=== PATIENT | female | born 1950 | race Caucasian/White ===

== ENCOUNTER 2017-06-28 08:21 | Outpatient (CLI) | payer MEDICARE ==
--- NOTE | 2017-06-28 10:04 | RAD ---
THREE VIEWS LUMBAR SPINE: HISTORY: Radiculopathy. Pain. COMPARISON: None. FINDINGS: There are 5 lumbar-type vertebral bodies. Vertebral body height is maintained. No fracture. There is grade I retrolisthesis throughout the lumbar spine at L1-L2, L2-L3, and L3-L4. There is moderate to severe loss of disk space height at L2-L3 and L3-L4. Upon flexion, the degree of retrolisthesis d oes not change. Upon extension, the degree of retrolisthesis has not changed. IMPRESSION: Persistent retrolisthesis as above. POS: LOBITO
--- NOTE | 2017-06-28 10:39 | MRI ---
MRI LUMBAR SPINE WITHOUT IV CONTRAST: Date: 06/28/17 HISTORY: Lumbar radiculopathy. Patient states low back pain with pain radiating down base of neck to bilateral shoulders, as well as down into both hips and legs since August 2016. FINDINGS: A 1.3 cm increased T2-weighted signal intensity lesion seen in the mid portion of right kidney, which likely represents cyst but is difficult to characterize on this exam. Nonemergent renal sonogram wou ld be helpful for further evaluation. Retroperitoneal structures otherwise demonstrate a normal MRI a ppearance. End plate degenerative changes are seen at the L3-4 level. Schmorl's node seen at the inferior end pl ate of the L2 vertebral body. Normal signal intensity otherwise demonstrated in the bone marrow. T11-12 Level: There is a focus of increased T2-weighted signal intensity seen in the paracentral posterior margin o f the intervertebral disc consistent with a small annular tear. There is minimal associated disc bulg e with slight effacement of the ventral subarachnoid space. Neural foramina are patent. T12-L1 Level: There is no disc bulge or disc herniation. There are mild facet degenerative changes. There is no sig nificant narrowing of the central spinal canal and the neural foramina are widely patent. L1-2 Level: There is loss of intervertebral disc height. There is trace retrolisthesis of L1 and L2. There is a b road based disc osteophyte complex, but there is no significant narrowing of the central spinal canal , and the neural foramina are patent. L2-3 Level: There is trace retrolisthesis of L2 on L3. There is severe loss of intervertebral disc space height. There is a broad based disc osteophyte complex. This flattens the ventral aspect of the thecal sac wi thout significant narrowing of the central spinal canal. There is mild encroachment on each neural fo ramen. L3-4 Level: There is trace retrolisthesis of L3 on L4. There is severe loss of intervertebral disc height. There is a broad based disc osteophyte complex present. This again results in slight flattening of the vent ral aspect of the thecal sac without significant narrowing of the central spinal canal. There is mild to moderate left-sided neural foraminal narrowing with mild right-sided neural foraminal narrowing. L4-5 Level: There is minimal disc bulge without significant narrowing of the central spinal canal. Facet hypertro phic changes are present at this level. There is mild to moderate right and mild left-sided neural fo raminal narrowing. L5-S1 Level: There is a minimal broad based disc bulge, but central spinal canal is patent. There are prominent fa cet and hypertrophic changes bilaterally with mild bilateral neural foraminal narrowing. The conus medullaris is normal in appearance and terminates at the L1-2 level. IMPRESSION: 1. Multilevel degenerative changes with mild degrees of neural foraminal narrowing. 2. Trace retrolisthesis of L1 on L2, L2 on L3, and L3 on L4. 3. Annular tear involving the T11-12 intervertebral disc. 4. Cystic lesion right kidney, statistically likely representing a small renal cyst. However, renal sonogram would be helpful for further evaluation. POS: DEB
== END 2017-06-28 08:22 | disposition home or self-care (01) ==
LOC: TBSIIMAG 08:21
PROVIDERS: ATTEND Surgery
DX: M47.26 Other spondylosis with radiculopathy, lumbar region (principal); M99.83 Other biomechanical lesions of lumbar region; M51.16 Intervertebral disc disorders with radiculopathy, lumbar region; N28.89 Other specified disorders of kidney and ureter; M43.16 Spondylolisthesis, lumbar region
CPT/HCPCS: 72110; 72148

== ENCOUNTER 2018-09-22 15:06 | Outpatient (CLI) | payer MEDICARE ==
--- NOTE | 2018-09-22 16:37 | ULT ---
LEFT LOWER EXTREMITY VENOUS DUPLEX ULTRASOUND INCLUDING COLOR AND SPECTRAL DOPPLER IMAGING: HISTORY: Lower leg edema and swelling. TECHNIQUE: Exam performed from groin to ankle, including the visualized greater saphenous, the common femoral, t he superficial femoral, the profunda femoral, the popliteal, and trifurcation, and the posterior tibi al vein regions. There is phasic flow at all levels with normal compressibility and normal augmentat ion. No intraluminal thrombus. FINDINGS: In the medial mid calf region, there is a small fluid collection, measuring approximately 0.9 x 2.3 x 9.9 cm, etiology is uncertain, conceivably this could represent a small hematoma or seroma. Another consideration would be that of fluid, in association with a ruptured Duron's cyst or popliteal fossa cyst. From ultrasound findings alone, the possibility of this representing a small infected fluid c ollection cannot be totally excluded. Please correlate clinically. If additional imaging is felt to be needed clinically, a follow-up MRI with and without contrast might be of benefit. IMPRESSION: 1. No evidence for deep venous thrombosis. 2. Elongated fluid collection in the soft tissues of the medial mid calf. POS: RRE
== END 2018-09-22 15:07 | disposition home or self-care (01) ==
LOC: SCSULT 15:06
PROVIDERS: ATTEND Family Medicine
DX: M79.605 Pain in left leg (principal); M79.89 Other specified soft tissue disorders

== ENCOUNTER 2019-04-24 12:59 | Outpatient (CLI) | payer MEDICARE ==
--- NOTE | 2019-04-24 14:51 | MRI ---
MRI RIGHT KNEE WITHOUT CONTRAST: Date: 04/24/2019 HISTORY: S83.421A sprain of lateral collateral ligament. COMPARISON: None. FINDINGS: Medial Meniscus: Low grade undersurface flap tear of the posterior horn/body junction and sprain of root attachment. There is mild intrameniscal degenerative signal in the medial meniscus body. No sign ificant gutter extrusion. Lateral Meniscus: There is a bucket-handle tear of the lateral meniscus involving the lateral menisc al body and posterior horn flipped anterior to the posterior horn with no normal anterior horn fibers remaining. The torn displaced fibers are likely scarred and highly degenerative. There is some scarring and granulation tissue trying to bridge the gap between the lateral femoral co ndyle and lateral tibial plateau. Moderate anterior ligament degeneration of anterior cruciate ligament. Posterior cruciate ligament is intact. MCL is intact. LCL is intact. Extensor Mechanism: Quadriceps tendon, patella, and patellar tendon are intact. Bones: There are numerous full thickness cartilage fissures throughout the patellofemoral compartmen t with subcortical reactive marrow change. Medial Compartment: Some moderate chondral delamination of central weightbearing surface medial femo ral condyle and medial tibial plateau with reactive marrow change and articular surface remodeling. T hese fissures and fraying are within the background and with relatively normal appearing cartilage in volving a major of the medial compartment. Lateral compartment: Cartilage denuding central articular surfaces of the lateral femoral condyle an d lateral tibial plateau with subsequent concavity of the lateral tibial plateau and genu valgus. Bones: Vert large tricompartmental osteophytes. Subcortical cysts/edema lateral tibial plateau with concavity. Small medial and patellofemoral compartment osteophytes. Soft Tissues: Moderate joint effusion with synovitis. Large popliteal cyst without evidence of dehis cence. Muscles: Muscle signal and bulk are normal. IMPRESSION: 1. Chronic complete bucket-handle tear of the lateral meniscal body and anterior horn displaced ante rior to the posterior horn, likely a scar in place as there is high grade degenerative signal of the flipped meniscal fibers, chondral maceration, and chronic remodeling of the lateral compartment with subsequent genu valgus. 2. Mild intraligamentous degeneration of the anterior cruciate ligament, likely sequelae of erosion from the large femoral condylar osteophytes. 3. 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 4. A few high grade chondral fissures and delamination of the medial femoral condyle with otherwise background Grade II chondromalacia. 5. Nondisplaced undersurface flap tear of the posterior horn and body junction of medial meniscus ex tending to the posterior horn sparing the root attachment. No gutter extrusion. 6. Moderate joint effusion with synovitis. 7. Large popliteal cyst without dehiscence. POS: CET
--- NOTE | 2019-05-04 13:42 | MMO ---
Bilateral MAMMO Bilat Screen [facility]. CLINICAL HISTORY: Patient is 68 years old and is seen for screening. The patient has no family history of breast cancer. The patient has no personal history of cancer. VIEWS: The views performed were: bilateral craniocaudal with tomosynthesis and bilateral mediolateral oblique with tomosynthesis. FILMS COMPARED: The present examination has been compared to prior imaging studies performed at [facility] on 11/23/2014 and 02/13/2016. This study has been interpreted with the assistance of computer-aided detection. MAMMOGRAM FINDINGS: There are scattered fibroglandular densities. Benign calcifications are noted bilaterally. There are no suspicious masses, suspicious calcifications, or new areas of architectural distortion. IMPRESSION: THERE IS NO MAMMOGRAPHIC EVIDENCE OF MALIGNANCY. A ROUTINE FOLLOW-UP MAMMOGRAM IN 1 YEAR IS RECOMMENDED. THE RESULTS OF THIS EXAM WERE SENT TO THE PATIENT. ACR BI-RADS Category 2 - Benign finding MAMMOGRAPHY NOTE: 1. A negative mammogram report should not delay a biopsy if a dominant of clinically suspicious mass is present. 2. Approximately 10% to 15% of breast cancers are not detected by mammography. 3. Adenosis and dense breasts may obscure an underlying neoplasm. Reported by: YESENIA STEWART MD Electonically Signed: [id number]
== END 2019-04-24 13:00 | disposition home or self-care (01) ==
LOC: BICMRI 12:59
PROVIDERS: ATTEND Specialist
DX: Z12.31 Encounter for screening mammogram for malignant neoplasm of breast (principal); S83.421A Sprain of lateral collateral ligament of right knee, initial encounter; S83.251A Bucket-handle tear of lateral meniscus, current injury, right knee, initial encounter; M94.261 Chondromalacia, right knee; S83.241A Other tear of medial meniscus, current injury, right knee, initial encounter; M65.9 Synovitis and tenosynovitis, unspecified; M71.21 Synovial cyst of popliteal space [Baker], right knee
CPT/HCPCS: 77063; 77067

== ENCOUNTER 2019-08-14 07:10 | Outpatient (CLI) | payer MEDICARE, OTHER ==
[2019-08-14 16:45] LABS: #Basophils 0.1 thou/uL (0.0-0.2); #Eosinphils 0.1 thou/uL (0.0-0.7); #Monocytes 0.5 thou/uL (0.11-0.59); #Neutrophils 4.7 thou/uL (1.40-6.50); %Basophils 0.7 % (0.0-1.0); %Eosinophils 1.6 % (0.0-10.0); %Lymphocytes 27.2 % (21.0-51.0); %Monocytes 7.2 % (0.0-10.0); %Neutrophils 63.2 % (42.0-75.0); Hemoglobin 15.1 g/dL (12.0-16.0); Mean Corpuscular Hemoglobin 27.3 pg (27.0-31.0); Mean Corpuscular Volume 82.8 fL (78.0-98.0); Mean Platelet Volume 8.6 fL (7.4-10.4); Platelet Count 311 thou/uL (130-400); RBC Distribution Width 13.7 % (11.5-14.5); Red Blood Cell (RBC) Count 5.52 mill/uL (4.20-5.40); White Blood Cell (WBC) Count 7.5 thou/uL (4.8-10.8)
[2019-08-14 16:50] LABS: Anion Gap 10 mmol/L (10-20); BUN (Urea Nitrogen) 12 mg/dL (9.8-20.1); Calc. Creatinine Clearance 0 mL/min (70-130); Calcium 9.3 mg/dL (7.8-10.44); Carbon Dioxide 28 mmol/L (23-31); Chloride 109 mmol/L (98-107); Estimated GFR-MDRD 67; Glucose 73 mg/dL (80-115); Potassium 3.9 mmol/L (3.5-5.1); Sodium 143 mmol/L (136-145)
[2019-08-15 12:16] LABS: SARS-CoV-2 MS2 Positive; SARS-CoV-2 N Gene Negative; SARS-CoV-2 S Gene Negative; SARS-CoV-2 orf1ab Negative
== END 2019-08-14 07:11 | disposition home or self-care (01) ==
LOC: LABBT 07:10
PROVIDERS: ATTEND Orthopaedic Surgery
DX: Z01.818 Encounter for other preprocedural examination (principal); Z11.59 Encounter for screening for other viral diseases; M17.11 Unilateral primary osteoarthritis, right knee
CPT/HCPCS: 80048; 85025; 85610; 87081; U0003; 87635; 93005; 93010

== ENCOUNTER 2019-08-18 05:29 | Observation (INO) | payer MEDICARE ==
[2019-08-13 09:54] VITALS: BMI 29.3
[2019-08-18] MEDS ORDERED: Vancomycin 1 GM/200 ML BAG ONE (06:00)
[2019-08-18] MEDS ORDERED: Tranexamic Acid 1,000 MG/10 ML VIAL ONE (06:00)
[2019-08-18] MEDS ORDERED: Sodium Chloride 0.9% 100 ML ONE (06:00)
[2019-08-18] MEDS ORDERED: Fentanyl 100 MCG/2 ML VIAL ONE ×5 (06:13→09:35)
[2019-08-18] MEDS ORDERED: Midazolam HCl 2 mg/2 ml Vial ONE ×2 (06:13→06:25)
[2019-08-18] MEDS ORDERED: diphenhydrAMINE 25 MG CAP PO PRN (07:00)
[2019-08-18] MEDS ORDERED: HYDROcodone/Acetaminophen 10/325 mg Tablet PO PRN ×4 (07:00→07:24)
[2019-08-18] MEDS ORDERED: Zolpidem Tartrate 5 MG TAB PO PRN ×2 (07:00→07:24)
[2019-08-18] MEDS ORDERED: Promethazine HCl 25 MG/ML VIAL IM PRN ×2 (07:00→07:24)
[2019-08-18] MEDS ORDERED: Acetaminophen 325 MG TAB PO PRN (07:00)
[2019-08-18] MEDS ORDERED: Fentanyl 100 MCG/2 ML VIAL SLOW IVP PRN ×3 (07:00→07:25)
[2019-08-18] MEDS ORDERED: Ondansetron PF 4 MG/2 ML Vial IVP PRN ×2 (07:00→07:24)
[2019-08-18] MEDS ORDERED: tiZANidine HCl 4 MG TAB PO PRN (07:03)
[2019-08-18] MEDS ORDERED: traMADol HCl 50 MG TAB PO PRN ×2 (07:24)
[2019-08-18] MEDS ORDERED: Ropivacaine HCl/PF 250 ML in Premix Bag 1 BAG NERVE BLCK SCH (07:24)
[2019-08-18] MEDS ORDERED: Promethazine HCl 25 MG/ML VIAL ONE (09:05)
--- NOTE | 2019-08-18 09:19 | OP ---
DATE OF PROCEDURE: 08/18/2019 This is Kiet Plasencia PA-C dictating a report for Ron Lambert MD. PREOPERATIVE DIAGNOSIS: End-stage tricompartmental osteoarthritis, right knee, with degenerative genu valgum. POSTOPERATIVE DIAGNOSIS: End-stage tricompartmental osteoarthritis, right knee, with degenerative genu valgum. PROCEDURE PERFORMED: Cemented cruciate-sparing computer-assisted navigated right total knee arthroplasty. VINER OPERATOR: Kiet Plasencia PA-C ANESTHESIA: General via LMA, augmented with indwelling adductor canal and a single-shot sciatic block. COMPONENTS USED: [employer] Triathlon primary cemented cruciate-sparing size 3 femoral component, primary cemented size 3 tibial base plate, 9-mm polyethylene fixed bearing insert, and an S27 patellar button. TOURNIQUET TIME: 54 minutes at 300 mmHg. FINDINGS: End-stage severe degenerative tricompartmental disease, [id number] arthrosis, periarticular osteophyte formation, large serous effusion, hypertrophic synovium, and changes consistent with degenerative genu valgum and a significant wear pattern of the lateral compartment. DRAINS: None. SPECIMENS: None. COMPLICATIONS: None. ESTIMATED BLOOD LOSS: Less than 100. INDICATIONS FOR SURGERY: Anita is a 68-year-old female who has had progressive right knee pain and problems with standing and walking for the last 5 to 7 years. She has failed conservative management, elected to proceed with total knee arthroplasty as definitive treatment of her pain. PROCEDURE IN DETAIL: After informed consent was obtained in the preoperative holding area, the patient was taken to the operative suite where general anesthesia was induced. Once adequate level of general anesthesia was obtained, the patient was positioned and a well-padded tourniquet was placed around the right proximal thigh. The right lower extremity was then prepped and draped in the usual sterile fashion. Prior to exsanguination, a time-out was called and all members of the surgical team agreed upon site, surgeon, and patient. The extremity was then exsanguinated and the tourniquet was raised. A midline longitudinal incision was then made directly over the patella extending 2 fingerbreadths above the superior pole of the patella and 2 fingerbreadths inferior to the inferior patellar pole of the patella. Deeper subcutaneous layers were dissected sharply and local bleeding was controlled with Bovie electrocautery. A quad tendon longitudinal split was then made sharply and a median parapatellar arthrotomy was carried out both sharp and with Bovie electrocautery, carried down to 1 fingerbreadth medial to the tibial tubercle. The knee was then placed into flexion and the patella was everted nicely, and a copious fat pad ectomy was performed, allowing for greater exposure of the tibia. The computer-assisted distal femoral fiducial was then placed and pinned firmly, and the distal femoral cutting guide was pinned firmly into place. The oscillating saw was then used to remove the appropriate amount of bone. The 4-in-1 cutting block was then placed on the distal femur and the oscillating saw was used to remove the appropriate amount of bone off the anterior, posterior, and chamfer cuts. After completion of bone cuts, the anterior cruciate ligament was resected sharply and the posterior cruciate ligament retractor was placed and the tibia was subluxed for better exposure. Partial meniscectomies were carried out, and the tibial computer-assisted fiducial was pinned, and the cutting guide was placed. Oscillating saw was then used to remove the bone, with Hohmann retractors used to take care and protect the collateral ligaments. After the tibial resection was performed, a laminar paper hanger was placed in between the freshened bone cuts. The knee placed at 90 degrees and further bilateral meniscectomies were carried out, and the curved osteotome and curettage were used to remove any excess bone spurs in the posterior compartment. The trial femoral component, tibial baseplate were placed with the appropriate polyethylene trial insert with an appropriate polyethylene spacer and patellar button. The knee was taken through full range of motion with flexion and extension from 0 to 90 degrees and patellar broach squarely in the trochlea without any squinting or subluxation noted. The knee was also stable to varus and valgus stressing at 0, 15, 45, and 90 degrees of flexion. The drawer was negative. All trial components were then removed and the keel punch was used to provide the appropriate defect in the tibia with a mallet. The freshened bone cuts were copiously irrigated with pulsatile lavage of about 1.5 L to remove all excess debris. The freshened bone cuts were then dried with suction and lap sponge. The knee was placed in flexion and retractors were placed to provide access to all bone cuts. Tobramycin-impregnated methyl methacrylate cement was then placed on the freshened bone cuts and implants which were malleted firmly into place. Curettage and Bartlett elevators were used to remove any excess bone cement. The knee was placed into full extension and the patellar button was placed under compression, and the cement was allowed to cure. Once completed, the components were again taken through full range of motion and copious irrigation of the knee was carried out with another liter of normal saline. All components were inspected fully with full range of motion and varus and valgus stressing. There was no laxity noted and full extension was observed clinically. Primary closure was accomplished with #2 interrupted Vicryl stitch of the arthrotomy defect. This was oversewn with a #2 running Quill barbed stitch. The subcutaneous layer was then closed with a running 0 barbed Monocryl stitch and skin closure accomplished with a running subcuticular 3-0 Monocryl barbed Quill stitch and augmented with cement on the skin. Tourniquet was lowered. Good spontaneous return of distal pulses was noted clinically and a sterile dressing was applied to the incision. The procedure was terminated without any complications. The patient was awakened in the operative suite and taken to the recovery room in stable condition. Job ID: [id number]
--- NOTE | 2019-08-18 09:50 | RAD ---
EXAM: 2 views of the right knee HISTORY: Knee arthroplasty COMPARISON: None FINDINGS: No knee effusion is seen. The patient is status post knee arthroplasty without perihardware lucency or fracture. Air in the soft tissues is from recent surgery. IMPRESSION: Status post knee arthroplasty without evidence of complication.
[2019-08-18] MEDS ORDERED: Ketorolac Tromethamine 30 MG/ML VIAL ONE (10:02)
[2019-08-18] MEDS ORDERED: Bupivacaine HCl 0.5%/Epinephrine 1:200,000/PF 30 ml Vial ONE (10:49)
[2019-08-18] MEDS ORDERED: Ropivacaine 0.2% HCl/PF (40 MG/20 ML VIAL) ONE (10:49)
[2019-08-18] MEDS ORDERED: Dexamethasone 20 MG/5 ML VIAL ONE (10:49)
[2019-08-18] MEDS ORDERED: Ondansetron PF 4 MG/2 ML Vial ONE (10:49)
[2019-08-18] MEDS ORDERED: Lidocaine 1% PF 5 ML VIAL ONE (10:49)
[2019-08-18] MEDS ORDERED: PROPOFOL 200 MG/20 ML VIAL ONE (10:49)
[2019-08-18] MEDS: ALPRAZolam 1 MG TAB PO SCH ×4 (11:28→21:12)
[2019-08-18] MEDS: Sodium Chloride 0.9% 1,000 ML IV SCH ×3 (11:28→22:28)
[2019-08-18] MEDS: Aspirin 81 mg Enteric Coated Tablet PO SCH ×2 (11:28→21:11)
[2019-08-18] MEDS ORDERED: Ketorolac Tromethamine 30 MG/ML VIAL IVP SCH ×2 (12:00→14:00)
[2019-08-18] MEDS: CEFAZOLIN 2 GM in Premix Bag 1 BAG IVPB SCH ×2 (14:25→21:12)
[2019-08-18] MEDS: Ketorolac Tromethamine 30 MG/ML VIAL IVP SCH ×2 (16:03→21:15)
[2019-08-19] MEDS: Ketorolac Tromethamine 30 MG/ML VIAL IVP SCH ×4 (05:24→21:02)
[2019-08-19 05:33] LABS: Hemoglobin 12.4 g/dL (12.0-16.0); Mean Corpuscular HGB CONC 32.1 g/dL (32.0-36.0); Mean Corpuscular Hemoglobin 26.8 pg (27.0-31.0); Mean Corpuscular Volume 83.6 fL (78.0-98.0); Platelet Count 251 thou/uL (130-400); RBC Distribution Width 13.5 % (11.5-14.5); Red Blood Cell (RBC) Count 4.62 mill/uL (4.20-5.40)
[2019-08-19] MEDS: Pantoprazole 40 MG GRANULES PACKET PO SCH (08:50)
[2019-08-19] MEDS: Aspirin 81 mg Enteric Coated Tablet PO SCH ×2 (08:50→20:32)
[2019-08-19] MEDS: Ferrous Gluconate 324 MG TAB PO SCH ×2 (08:50→17:49)
[2019-08-19] MEDS: Senokot S 8.6-50 MG TAB PO SCH ×2 (08:50→20:32)
[2019-08-19] MEDS: ALPRAZolam 1 MG TAB PO SCH ×3 (08:51→20:30)
[2019-08-19] MEDS: Multivitamin W/ Minerals 1 TAB PO SCH (08:51)
[2019-08-19] MEDS: Enoxaparin Sodium 40 MG/0.4 ML SYRINGE SC SCH (08:52)
[2019-08-19] MEDS: Sodium Chloride 0.9% 1,000 ML IV SCH (13:00)
[2019-08-19] MEDS ORDERED: Sodium Chloride 0.9% 500 ML IV SCH (14:45)
--- NOTE | 2019-08-19 15:11 | PDOC.HOSPP ---
- Subjective Encounter Date: 08/19/19 Subjective: 68 years old female with no significant past medical history apart from arthritis and anxiety. She is status post TKA POD1. She is participating in physical therapy and her pain is controlled. BP is on the lower side. - Objective Vital Signs & Weight: Vital Signs (12 hours) Temp Pulse Resp BP Pulse Ox 08/19/19 11:08 97.5 F L 91 18 80/53 L 96 08/19/19 07:21 98.0 F 74 18 95/62 100 08/19/19 05:34 98 F 16 101/66 93 L Weight Admit Weight 171 lb Weight 171 lb I&O: 08/18/19 08/19/19 08/20/19 06:59 06:59 06:59 Intake Total 874 Output Total 3000 Balance -2125 Result Diagrams: 08/19/19 05:06 Hospitalist ROS - Medication Medications: Active Medications Generic Name Dose Route Start Last Admin Trade Name Freq PRN Reason Stop Dose Admin Hydrocodone Bitart/Acetaminophen 1 tab 08/18/19 07:24 08/19/19 08:52 [place] 10/325 PO 1 tab Q4H PRN Administration Pain (1-3) Alprazolam 1 mg 08/18/19 15:00 08/19/19 08:51 Xanax PO 1 mg TID GAYLE Administration Aspirin 81 mg 08/18/19 09:00 08/19/19 08:50 Ecotrin PO 81 mg BID GAYLE Administration Enoxaparin Sodium 40 mg 08/19/19 09:00 08/19/19 08:52 Lovenox SC 40 mg 0900 GAYLE Administration Ferrous Gluconate 324 mg 08/19/19 08:00 08/19/19 08:50 Fergon PO 324 mg BID- GAYLE Administration Sodium Chloride 1,000 mls @ 100 mls/hr 08/18/19 07:00 08/19/19 13:00 Normal Saline 0.9% IV Not Given .Q10H GAYLE Ropivacaine 250 ml/ Device 250 mls @ 10 mls/hr 08/18/19 07:24 08/19/19 09:49 NERVE BLCK 08/21/19 07:23 250 mls INF GAYLE Administration Iron/Minerals/Multivitamins 1 tab 08/19/19 09:00 08/19/19 08:51 Theragran M PO 1 tab DAILY GAYLE Administration Ketorolac Tromethamine 15 mg 08/18/19 16:00 08/19/19 09:49 Toradol IVP 08/20/19 10:01 15 mg 0400,1000,1600,2200 GAYLE Administration Pantoprazole Sodium 40 mg 08/19/19 09:00 08/19/19 08:50 Protonix PO 40 mg DAILY GAYLE Administration Quetiapine Fumarate 100 mg 08/18/19 21:00 08/18/19 21:12 Seroquel PO 100 mg HS GAYLE Administration Senna/Docusate Sodium 2 tab 08/19/19 09:00 08/19/19 08:50 Senokot S PO 2 tab BID GAYLE Administration - Exam General Appearance: awake alert ENT: normocephalic atraumatic Neck: supple Respiratory: normal chest expansion, no tachypnea Gastrointestinal: soft Neurological: cranial nerve grossly intact Hosp A/P (1) Hypotension Status: Acute (2) Anxiety Code(s): F41.9 - ANXIETY DISORDER, UNSPECIFIED Status: Acute (3) Osteoarthritis Code(s): M19.90 - UNSPECIFIED OSTEOARTHRITIS, UNSPECIFIED SITE Status: Acute - Plan Bolus 500cc of NS. Enoxaparin for DVTppx. Protonix for ulcer ppx since the patient is receiving NSAID. PT & OT.
[2019-08-20] MEDS: Sodium Chloride 0.9% 1,000 ML IV SCH ×2 (00:06→09:03)
[2019-08-20] MEDS: Ketorolac Tromethamine 30 MG/ML VIAL IVP SCH ×2 (04:04→10:46)
[2019-08-20] MEDS ORDERED: ALPRAZolam 0.5 MG TAB PO SCH (05:00)
[2019-08-20] MEDS: Ferrous Gluconate 324 MG TAB PO SCH (08:58)
[2019-08-20] MEDS: Enoxaparin Sodium 40 MG/0.4 ML SYRINGE SC SCH (09:00)
[2019-08-20] MEDS: Pantoprazole 40 MG GRANULES PACKET PO SCH (09:00)
[2019-08-20] MEDS: ALPRAZolam 1 MG TAB PO SCH (09:01)
[2019-08-20] MEDS: Senokot S 8.6-50 MG TAB PO SCH (09:01)
[2019-08-20] MEDS: Aspirin 81 mg Enteric Coated Tablet PO SCH (09:01)
[2019-08-20] MEDS: Multivitamin W/ Minerals 1 TAB PO SCH (09:01)
[2019-08-20 11:22] VITALS: BP 101/67; TEMP 98.6
== END 2019-08-20 13:25 | disposition home or self-care (01) ==
LOC: SDC 05:29 → SJJU 07:00 → SDC 08-19 18:02 → SJJU 08-19 18:02
PROVIDERS: ADMIT Orthopaedic Surgery; ATTEND Orthopaedic Surgery
PROC: 0SRC0J9 Replacement of Right Knee Joint with Synthetic Substitute, Cemented, Open Approach (ICD-10-PCS; principal; 2019-08-18)
PROC: 8E0YXBZ Computer Assisted Procedure of Lower Extremity (ICD-10-PCS; 2019-08-18)
PROC: 3E0T3BZ Introduction of Anesthetic Agent into Peripheral Nerves and Plexi, Percutaneous Approach (ICD-10-PCS; 2019-08-18)
DX: M17.11 Unilateral primary osteoarthritis, right knee (principal); M21.061 Valgus deformity, not elsewhere classified, right knee; G89.18 Other acute postprocedural pain; F41.9 Anxiety disorder, unspecified; I95.9 Hypotension, unspecified; Z79.899 Other long term (current) drug therapy
CPT/HCPCS: 20985; 27447; 64448; 73560; 85027; 97110 ×2; 97116 ×2; 97139 ×3; 97530 ×3; C1713; C1776; 36415; J0670; J0690; J1100; J1650; J1885; J2001; J2250; J2405; J2550; J2704; J2795; J3010; J3370; J3490

== ENCOUNTER 2019-12-17 11:01 | Outpatient (CLI) | payer MEDICARE ==
--- NOTE | 2019-12-17 12:00 | ULT ---
EXAM: Right lower extremity venous Doppler US HISTORY: Right lower extremity edema and pain FINDINGS: Grayscale, color-flow, Doppler evaluation, spectral analysis of the right lower extremity venous stru ctures is performed with 2-D imaging. The right common femoral, superficial femoral, popliteal, posterior tibial, proximal greater saphenous and profunda femoral veins are imaged. There is normal luminal compressibility, flow, and augmentation the visualized deep venous structures of the right lower extremity. IMPRESSION: No evidence of a deep vein thrombosis in the right lower extremity.
== END 2019-12-17 11:02 | disposition home or self-care (01) ==
LOC: BICULT 11:01
PROVIDERS: ATTEND Specialist
DX: M79.89 Other specified soft tissue disorders (principal)

== ENCOUNTER 2020-01-19 08:13 | Outpatient (CLI) | payer MEDICARE ==
--- NOTE | 2020-01-19 10:27 | RAD ---
LUMBAR SPINE 4 VIEWS: Date: 01/19/2020 INDICATION: History of intervertebral disc disorder with lumbar radiculopathy. COMPARISON: MRI of the lumbar spine performed on 01/19/2020. FINDINGS: As seen on the comparison lumbar spine MRI is retrolisthesis of L3 on L4 and L2 on L3 with mild Grade I anterolisthesis of L5 on S1. There is also very minimal retrolisthesis of L1 on L2. No definite ab normal translational motion is seen on the flexion/extension radiographs. SI joints are normal appear ing. IMPRESSION: Spondylosis of the lumbar spine without abnormal translation motion. POS: BH
--- NOTE | 2020-01-19 10:42 | MRI ---
MRI LUMBAR SPINE WITHOUT CONTRAST: Date: 01/19/2020 INDICATION: 69-year-old female with intervertebral disc disorder and radiculopathy. COMPARISON: Prior exam dated 06/28/2017. FINDINGS: There is persistent retrolisthesis that is mild in severity affecting L3-4 and L2-3. There is advance d disc degenerative disease at L2-3 and L3-4 which is similar. No acute fracture is evident. The conu s is seen to terminate at L1. Visualized aspects of the retroperitoneum appear within normal limits. At L5-S1, there is moderate facet joint degenerative change and a mild broad based disc bulge. There is very subtle Grade I anterolisthesis that is stable. There is mild bilateral neural foraminal narro wing which is stable. At L4-5, there is a broad based bulge with moderate left and mild right facet joint degenerative laboy ge that appears stable in size. There is mild bilateral neural foraminal narrowing that is stable. At L3-4, there is a disc osteophyte complex with facet hypertrophy and loss of disc space height lena cing mild bilateral neural foraminal narrowing, left greater than right, that is stable. At L2-3, there is a broad based asymmetric to the right disc osteophyte complex inducing mild right n eural foraminal narrowing which is stable. At L1-2, there is a broad based bulge inducing some mild effacement of the subarachnoid space without nerve root compression. There is mild bilateral neural foraminal narrowing which is stable. At T12-L1, there is no appreciable central canal or neural foraminal narrowing. IMPRESSION: Stable moderate spondylosis of the lumbar spine with multilevel neural foraminal narrowing. POS: KALYAN
== END 2020-01-19 08:14 | disposition home or self-care (01) ==
LOC: BICMRI 08:13
PROVIDERS: ATTEND Specialist
DX: M51.16 Intervertebral disc disorders with radiculopathy, lumbar region (principal); M47.26 Other spondylosis with radiculopathy, lumbar region; M48.061 Spinal stenosis, lumbar region without neurogenic claudication; M48.07 Spinal stenosis, lumbosacral region
CPT/HCPCS: 72110; 72148

== ENCOUNTER 2020-02-19 12:10 | Outpatient (CLI) | payer MEDICARE ==
--- NOTE | 2020-02-19 12:58 | ULT ---
Left lower extremity venous Doppler ultrasound: 02/19/2020 COMPARISON: None HISTORY: Left knee replacement, posterior left knee pain TECHNIQUE: Multiplanar grayscale sonographic imaging of the venous structures of the left lower extre mity obtained with color flow and spectral analysis FINDINGS: Left common femoral vein, greater saphenous vein, profunda femoral vein, femoral vein, popl iteal vein, and posterior tibial vein are patent. Normal blood flow, augmentation, and compression within the deep venous system on the left. No evidence for deep venous thrombosis. There is a large lobulated fluid collection in the posterior medial aspect of the popliteal fossa wit h internal debris suggesting a complex popliteal fossa cyst, measuring at least 4.8 x 2.9 x 3.2 cm. IMPRESSION: No evidence for deep venous thrombosis of the left lower extremity. Findings suggesting a large complex left popliteal fossa cyst.
== END 2020-02-19 12:11 | disposition home or self-care (01) ==
LOC: BICULT 12:10
PROVIDERS: ATTEND Specialist
DX: R60.9 Edema, unspecified (principal); M79.89 Other specified soft tissue disorders; G89.4 Chronic pain syndrome

== ENCOUNTER 2020-05-03 09:45 | Outpatient (CLI) | payer MEDICARE ==
--- NOTE | 2020-05-03 10:15 | MMO ---
Bilateral MAMMO Bilat Screen [facility]. CLINICAL HISTORY: Patient is 69 years old and is seen for screening. The patient has no family history of breast cancer. The patient has no personal history of cancer. VIEWS: The views performed were: bilateral craniocaudal with tomosynthesis and bilateral mediolateral oblique with tomosynthesis. FILMS COMPARED: The present examination has been compared to prior imaging studies performed at [facility] on 04/24/2019, and at [facility] on 11/23/2014 and 02/13/2016. This study has been interpreted with the assistance of computer-aided detection. MAMMOGRAM FINDINGS: There are scattered fibroglandular densities. There are stable benign appearing calcifications seen in both breasts. There are no suspicious masses, suspicious calcifications, or new areas of architectural distortion. IMPRESSION: THERE IS NO MAMMOGRAPHIC EVIDENCE OF MALIGNANCY. A ROUTINE FOLLOW-UP MAMMOGRAM IN 1 YEAR IS RECOMMENDED. THE RESULTS OF THIS EXAM WERE SENT TO THE PATIENT. ACR BI-RADS Category 2 - Benign finding MAMMOGRAPHY NOTE: 1. A negative mammogram report should not delay a biopsy if a dominant of clinically suspicious mass is present. 2. Approximately 10% to 15% of breast cancers are not detected by mammography. 3. Adenosis and dense breasts may obscure an underlying neoplasm. Reported by: SLY CLARK MD Electonically Signed: [id number]
== END 2020-05-03 09:46 | disposition home or self-care (01) ==
LOC: BICMAMMO 09:45
PROVIDERS: ATTEND Family Medicine
DX: Z12.31 Encounter for screening mammogram for malignant neoplasm of breast (principal)
CPT/HCPCS: 77063; 77067

== ENCOUNTER 2021-05-04 10:35 | Outpatient (CLI) | payer MEDICARE | END 2021-05-04 10:36 | disposition home or self-care (01) | LOC: BICMAMMO 10:35 | PROVIDERS: ATTEND Family Medicine | DX: Z12.31 Encounter for screening mammogram for malignant neoplasm of breast (principal) | CPT/HCPCS: 77063; 77067 ==

== ENCOUNTER 2021-06-07 14:59 | Observation (INO) | payer MEDICARE ==
[2021-06-07] MEDS ORDERED: Boostrix 0.5 ML (Tdap) VIAL ONE (15:23)
[2021-06-07] MEDS ORDERED: Morphine 4 MG/ML VIAL ONE (15:23)
[2021-06-07] MEDS ORDERED: CEFAZOLIN 1 GM VIAL ONE (15:23)
[2021-06-07] MEDS ORDERED: Ondansetron PF 4 MG/2 ML Vial ONE ×2 (15:23→15:46)
[2021-06-07] MEDS ORDERED: Fentanyl 100 MCG/2 ML VIAL ONE ×3 (15:45→19:13)
[2021-06-07] MEDS ORDERED: Ketorolac Tromethamine 30 MG/ML VIAL ONE (15:46)
[2021-06-07] MEDS ORDERED: Dexamethasone 20 MG/5 ML VIAL ONE (15:46)
[2021-06-07] MEDS ORDERED: Lidocaine 1% PF 5 ML VIAL ONE (15:46)
[2021-06-07] MEDS ORDERED: Succinylcholine 200 MG/10 ml SYRINGE FS ONE (15:46)
[2021-06-07] MEDS ORDERED: PROPOFOL 200 MG/20 ML VIAL ONE (15:46)
[2021-06-07] MEDS ORDERED: Neomycin-Polymyxin 1 ML AMP ONE (15:57)
[2021-06-07] MEDS ORDERED: ceFAZolin (BATCH) 2 GM/100 ML BAG ONE (16:10)
[2021-06-07] MEDS ORDERED: Midazolam HCl 2 mg/2 ml Vial ONE (16:14)
[2021-06-07 16:15] LABS: #Eosinphils 0.1 thou/uL (0.0-0.7); #Lymphocytes 0.9 thou/uL (1.20-3.40); #Monocytes 0.7 thou/uL (0.11-0.59); #Neutrophils 12.6 thou/uL (1.40-6.50); %Basophils 0.2 % (0.0-1.0); %Eosinophils 0.5 % (0.0-10.0); %Lymphocytes 6.6 % (21.0-51.0); %Monocytes 4.8 % (0.0-10.0); Hemoglobin 14.2 g/dL (12.0-16.0); Mean Corpuscular HGB CONC 31.5 g/dL (32.0-36.0); Mean Corpuscular Hemoglobin 26.7 pg (27.0-31.0); Mean Platelet Volume 7.4 fL (7.4-10.4); Platelet Count 342 thou/uL (130-400); RBC Distribution Width 13.5 % (11.5-14.5); Red Blood Cell (RBC) Count 5.29 mill/uL (4.20-5.40); White Blood Cell (WBC) Count 14.3 thou/uL (4.8-10.8)
[2021-06-07 16:36] LABS: ALT (SGPT) 16 U/L (8-55); AST (SGOT) 22 U/L (5-34); Alkaline Phosphatase 99 U/L (40-110); Anion Gap 13 mmol/L (10-20); BUN (Urea Nitrogen) 9 mg/dL (9.8-20.1); Bilirubin, Total 0.9 mg/dL (0.2-1.2); Calc. Creatinine Clearance 0 mL/min (70-130); Calcium 9.2 mg/dL (7.8-10.44); Carbon Dioxide 21 mmol/L (23-31); Chloride 110 mmol/L (98-107); Globulin 2.7 g/dL (2.4-3.5); Glucose 198 mg/dL (83-110); Potassium 3.9 mmol/L (3.5-5.1); Protein, Total 6.7 g/dL (5.8-8.1); Sodium 140 mmol/L (136-145)
[2021-06-07 17:26] LABS: SARS-CoV-2 NAA Rapid Test Not Detected (NotDetected)
[2021-06-07] MEDS ORDERED: HYDROmorphone 2 MG/ML VIAL ONE (17:50)
[2021-06-07] MEDS ORDERED: HYDROcodone/Acetaminophen 5/325 mg Tablet PO PRN (18:14)
[2021-06-07] MEDS ORDERED: Zolpidem Tartrate 5 MG TAB PO PRN (18:18)
[2021-06-07] MEDS ORDERED: Morphine 4 MG/ML VIAL SLOW IVP PRN (18:27)
[2021-06-07] MEDS ORDERED: Ondansetron HCl/PF 4 MG/2 ML Vial IVP PRN (18:49)
[2021-06-07] MEDS ORDERED: Promethazine HCl 25 MG/ML VIAL IVPB PRN (18:49)
[2021-06-07] MEDS ORDERED: HYDROmorphone 2 MG/ML VIAL SLOW IVP PRN (18:49)
[2021-06-07] MEDS ORDERED: Meperidine HCl/PF 25 MG/ML VIAL SLOW IVP PRN (18:49)
[2021-06-07] MEDS ORDERED: Promethazine HCl 25 MG/ML VIAL IM PRN (18:49)
[2021-06-07] MEDS ORDERED: Ondansetron PF 4 MG/2 ML Vial IVP PRN (20:07)
[2021-06-07 20:11] VITALS: BMI 28.8
[2021-06-07] MEDS: HYDROcodone/Acetaminophen 5/325 mg Tablet PO PRN (22:33)
[2021-06-07] MEDS: ALPRAZolam 1 MG TAB PO SCH (22:33)
[2021-06-07] MEDS: Aspirin 81 mg Enteric Coated Tablet PO SCH (22:36)
[2021-06-08] MEDS: CEFAZOLIN 2 GM, Admixture Fee 1 EACH in Sodium Chloride 0.9% 100 ML IVPB SCH ×3 (00:38→16:10)
[2021-06-08] MEDS: HYDROcodone/Acetaminophen 5/325 mg Tablet PO PRN ×2 (02:46→09:51)
[2021-06-08 05:27] LABS: #Monocytes 0.7 thou/uL (0.11-0.59); #Neutrophils 9.1 thou/uL (1.40-6.50); %Basophils 0.2 % (0.0-1.0); %Eosinophils 0.2 % (0.0-10.0); %Lymphocytes 9.1 % (21.0-51.0); %Monocytes 6.3 % (0.0-10.0); %Neutrophils 84.2 % (42.0-75.0); Hemoglobin 13.5 g/dL (12.0-16.0); Mean Corpuscular HGB CONC 31.6 g/dL (32.0-36.0); Mean Corpuscular Hemoglobin 26.7 pg (27.0-31.0); Mean Corpuscular Volume 84.6 fL (78.0-98.0); Mean Platelet Volume 7.3 fL (7.4-10.4); Platelet Count 342 thou/uL (130-400); RBC Distribution Width 13.5 % (11.5-14.5); Red Blood Cell (RBC) Count 5.04 mill/uL (4.20-5.40); White Blood Cell (WBC) Count 10.8 thou/uL (4.8-10.8)
[2021-06-08] MEDS: ALPRAZolam 1 MG TAB PO SCH ×2 (07:56→14:34)
[2021-06-08] MEDS: Aspirin 81 mg Enteric Coated Tablet PO SCH (09:17)
[2021-06-08 11:34] VITALS: TEMP 97.6
[2021-06-08] MEDS ORDERED: Cephalexin 250 MG CAP PO SCH (12:00)
[2021-06-08 14:06] VITALS: BP 110/71
== END 2021-06-08 17:55 | disposition home or self-care (01) ==
LOC: ERS 14:59 → SDC 17:41 → SURG A 18:14
PROVIDERS: ADMIT Orthopaedic Surgery; ATTEND Orthopaedic Surgery
PROC: 0PBJ0ZZ Excision of Left Radius, Open Approach (ICD-10-PCS; principal; 2021-06-07)
PROC: 0PBL0ZZ Excision of Left Ulna, Open Approach (ICD-10-PCS; 2021-06-07)
DX: S52.50 Unspecified fracture of the lower end of radius (principal); S52.602B Unspecified fracture of lower end of left ulna, initial encounter for open fracture type I or II; M18.12 Unilateral primary osteoarthritis of first carpometacarpal joint, left hand; Z20.822 Contact with and (suspected) exposure to COVID-19; W18.30XA Fall on same level, unspecified, initial encounter
CPT/HCPCS: 11012; 25607; 73100; 73110; 73130; 76000; 80053; 85025 ×2; 86850; 86900; 86901; 90471; 90715; 93005; 96365; 96366; 96375; 96376 ×2; 99285; C1713 ×3; C1776; G0378 ×2; U0002; 36415; J0690; J1100; J1170; J1885; J2250; J2270; J2405; J2704; J3010; J3490

== ENCOUNTER 2021-06-27 10:48 | Outpatient (CLI) | payer MEDICARE | END 2021-06-27 10:49 | disposition home or self-care (01) | LOC: RAD 10:48 | PROVIDERS: ATTEND Specialist | DX: M79.18 Myalgia, other site (principal) | CPT/HCPCS: 72170 ==

== ENCOUNTER 2021-06-29 07:42 | Outpatient (CLI) | payer MEDICARE | END 2021-06-29 07:43 | disposition home or self-care (01) | LOC: SCSMRI 07:42 | PROVIDERS: ATTEND Specialist | DX: M51.16 Intervertebral disc disorders with radiculopathy, lumbar region (principal); M87.052 Idiopathic aseptic necrosis of left femur; M47.26 Other spondylosis with radiculopathy, lumbar region; M84.48XA Pathological fracture, other site, initial encounter for fracture; M48.07 Spinal stenosis, lumbosacral region; M47.27 Other spondylosis with radiculopathy, lumbosacral region; M48.061 Spinal stenosis, lumbar region without neurogenic claudication; M43.16 Spondylolisthesis, lumbar region; M47.25 Other spondylosis with radiculopathy, thoracolumbar region; M51.24 Other intervertebral disc displacement, thoracic region; R60.0 Localized edema; S39.013A Strain of muscle, fascia and tendon of pelvis, initial encounter | CPT/HCPCS: 72148 ==